=== PATIENT | male | born 1965 | race Caucasian/White ===

== ENCOUNTER → 2019-12-12 10:46 | Outpatient (CLI) | payer OTHER, SELFPAY ==
[2019-11-26 13:49] VITALS: BMI 29.2
--- NOTE | 2019-12-12 10:50 | RAD_ITS ---
STUDY: X-RAY - PELVIS REASON FOR EXAM: Male, 54 years old. mass of Right lower Extremity TECHNIQUE: Two views of the pelvis were obtained. COMPARISON: None. FINDINGS: There is a non-specific bowel gas pattern. Normal visualized soft tissue structures. Normal bilateral iliac wings, sacroiliac joints and visualized sacrum. Normal visualized bilateral superior and inferior pubic rami. Normal pubic symphysis. Normal ischial tuberosities. Normal visualized right femoral head. Normal right acetabulum. Normal right hip joint. Normal visualized left femoral head. Normal left acetabulum. Normal left hip joint. RAD/Pelvis 1 or 2 Views IMPRESSION: Normal x-ray examination of the pelvis. Electronically Signed: Clement Moon MD at 19:59 EDT , Service support ,
== END ==
PROVIDERS: PCP Family Medicine; Referring Provider Surgery; Visit Provider Surgery
DX: M79.89 Other specified soft tissue disorders (principal)
CPT/HCPCS: 72170

== ENCOUNTER 2019-12-14 12:46 | Observation (INO) | payer OTHER, SELFPAY ==
[2019-11-26 13:49] VITALS: BMI 29.2
[2019-12-14] VITALS (12 sets, daily range): BP systolic 120–152; BP diastolic 72–93; PULSE 70–82; RESP 16; TEMP 36.2–37.3; O2SAT 94–98; BMI 28.2; BMI 31.1; BMI 31.2
--- NOTE | 2019-12-14 13:03 | ED.VIS.GEN ---
History of Present Illness Chief Complaint: Abd Pain Informant: Patient Narrative: 54-year-old male presenting with right lower quadrant pain. He states it started last evening and it was fairly mild at about 8 PM. Patient states that it was increasing overnight and he had episodes of nausea/vomiting. He slept with the trash can by his bed. Today his pain is more severe. He is concerned he has appendicitis. He has no history of kidney stones. He denies constipation or diarrhea. He denies urinary complaints. He has not had a fever at home. He has a distant hernia repair when he was 6 years old otherwise no intra-abdominal surgeries. He states his only medical problem is hypertension otherwise. Past Medical History - Allergies and Home Meds Allergies/Adverse Reactions: Allergies pregabalin [From Lyrica] Allergy (Mild, Verified 12/14/19 12:49) mood swings Primary Care Physician: Jeffery Andino III, MD [Primary Care Provider] - Prior records reviewed: Yes Past Medical History: - - Hypertension Surgical History: - - Abdominal hernia repair Lives: Spouse/ Significant Other Smoking Status: Unknown if ever smoked Alcohol: None Drugs: None Review of Systems General: Denies: Chills, Fever, Sweats Eyes: Denies: Visual changes - bilaterally, Diplopia ENT: Denies: Rhinorrhea, Sore throat Cardiovascular: Denies: Chest pain, Palpitations Respiratory: Denies: Dyspnea, Cough, Dyspnea on exertion Gastrointestinal: Reports: Abdominal pain, Nausea, Vomiting. Denies: Diarrhea, Constipation, Melena, Hematochezia Genitourinary: Denies: Dysuria, Hematuria Musculoskeletal: Denies: Myalgias, Arthralgias Skin: Denies: Rash, Abscess Psych: Denies: Depression, Anxiety Physical Exam Vital Signs/Narrative: Vital Signs Temp Pulse Resp BP Pulse Ox 12/14/19 12:49 97.1 F L 75 16 123/78 H 97 Inital Vital Signs reviewed: Yes General: Well nourished, Well developed Head: Normocephalic, Atraumatic Eyes: Perrl, EOMI. Negative for: Scleral icterus ENT: Moist mucous membranes, No rhinorrhea Cardiovascular: Regular rate, Regular rhythm Respiratory: No distress, CTA bilaterally Abdomen: Soft, Nondistended, Tender - Right lower quadrant abdominal pain on exam.. Negative for: Psoas sign, Obturator sign, Rovsig's sign Extremities: Nontender, No edema Skin: Normal color, No rash Neurological: Alert, Oriented x3 Psychological: Normal affect, Normal Mood Diagnostic/Tx/Re-eval Clinical Impression(s) from Imaging Studies Abdomen/Pelvis CT 12/14/19 13:26 Laboratory Data 12/14/19 12/14/19 12/14/19 13:20 13:20 13:30 WBC 10.0 RBC 4.92 Hgb 15.5 Hct 45.1 MCV 91.7 MCH 31.5 MCHC 34.4 RDW Std Deviation 41.1 RDW Coeff of Manisha 12.3 Plt Count 177 MPV 10.9 Immature Gran % (Auto) 0.300 Neut % (Auto) 75.4 H Lymph % (Auto) 16.4 L [place] % (Auto) 7.5 Eos % (Auto) 0.1 Baso % (Auto) 0.3 Absolute Neuts (auto) 7.5 Absolute Lymphs (auto) 1.63 Nucleated RBC % 0 Sodium 139 Potassium 3.8 Chloride 105 Carbon Dioxide 29.0 Anion Gap 5 BUN 20 H Creatinine 0.94 Estim Creat Clear Calc 105.66 Est GFR (MDRD) Af Amer 108 Est GFR (MDRD) Non-Af 89 BUN/Creatinine Ratio 21.4 H Glucose 94 Calcium 9.3 Total Bilirubin 0.80 AST 16 ALT 31 Alkaline Phosphatase 82 Total Protein 7.7 Albumin 4.1 Globulin 3.6 Albumin/Globulin Ratio 1.1 Urine Color Yellow Urine Clarity Clear Urine pH 6.0 Ur Specific [place] 1.010 Urine Protein Negative Urine Glucose (UA) Normal Urine Ketones Negative Urine Occult Blood Negative Urine Nitrite Negative Urine Bilirubin Negative Urine Urobilinogen Normal Ur Leukocyte Esterase Negative Urine RBC 0 SEEN Urine WBC 0 SEEN Ur Squamous Epith Cells 0 SEEN Urine Bacteria 0 SEEN Urine Mucus 0 SEEN - Medical Decision Making 54-year-old male presenting with right lower quadrant abdominal pain as well as nausea/vomiting. His blood work does appear to be normal however his CT of the abdomen and pelvis with IV contrast did not identify an acute nonperforated appendicitis. This was discussed with Dr. Ruiz who will come evaluate the patient in the ED. Patient will be transferred to the OR for appendectomy. Patient is stable on transfer. Impression: 1. Acute appendicitis ED Disposition - Plan for ED Patient: Referrals: Jeffery Andino III, MD [Primary Care Provider] -
--- NOTE | 2019-12-14 13:26 | CT_ITS ---
We are attempting to reach an attending provider to discuss findings. An addendum with communication details will be sent when the communication is complete. STUDY: CT ABDOMEN AND PELVIS WITH CONTRAST REASON FOR EXAM: Male, 54 years old. RLQ PAIN. RADIATION DOSAGE (If Supplied By Facility): CTDIvol = ( 17.47 ) mGy, DLP = ( 1171.73 ) mGycm TECHNIQUE: Transaxial images were obtained from the dome of the diaphragm to the symphysis pubis without oral contrast. IV 100mL Isovue-370 was administered. Sagittal and coronal images were reconstructed. Individualized dose optimization techniques were used for this CT. COMPARISON: None. FINDINGS: Lung bases demonstrate no evidence for consolidative process. Platelike atelectasis in the lung bases. Small hiatal hernia. Hepatic steatosis. Gallbladder is nondistended. Body and tail of the pancreas are not visualized possibly congenitally absent or atrophic. The adrenal glands appear unremarkable. Spleen appears unremarkable. Nonobstructive bowel gas pattern. There is dilated appendix noted with adjacent inflammatory stranding suggestive of acute appendicitis. Maximum appendiceal diameter is approximately 1 cm. Uncomplicated colonic diverticulosis. No free air within the peritoneal cavity. No free fluid. Right-sided fat-containing inguinal hernia. Heterogeneous enlarged appearance of the prostate gland which can be assessed with digital rectal exam and PSA values. Nonspecific wall thickening of the urinary bladder. Right-sided fat-containing inguinal hernia Degenerative changes of the lumbar spine. Kidneys demonstrate no evidence for hydronephrosis. Mild wedging of the lower thoracic and upper lumbar vertebrae which falls nodes IMPRESSION: Acute appendicitis. No evidence for drainable fluid collections. No evidence for appendiceal perforation. Electronically Signed: Travis Mar, at 14:54 EDT Tel , Service support , CT/Abdomen/Pelvis W IV Cont ONLY
[2019-12-14 13:41] LABS: Bacteria 0 SEEN /hpf (None Seen); Mucous, Urine 0 SEEN /hpf (<or=2+); Red Blood Cells-Urine 0 SEEN /hpf (0-5); Squamous Epithelial Cells - UA 0 SEEN /hpf (0-5); White Blood Cells 0 SEEN /hpf (0-5)
[2019-12-14 13:48] LABS: Color, Urine Yellow (Yellow); Glucose, Dipstick Normal (Normal); Ketone-Dipstick Negative (Negative); Leukocyte Esterase-Dipstick Negative /ul (Negative); Nitrite-Dipstick Negative (Negative); Occult Blood-Urine Negative /ul (Negative); Protein-Dipstick Negative (Negative); Urine Bilirubin Dipstick Negative (Negative); Urine Clarity Clear (Clear); Urine Urobilinogen Normal (Normal)
[2019-12-14] MEDS: 0.9% Normal Saline 1,000 ML 1000 ML IV (13:58)
[2019-12-14 14:03] LABS: Absolute Lymphocyte Count 1.63 X10^3/uL (0.83-4.51); Absolute Neutrophil Count 7.5 X10^3/uL (2.0-7.7); Basophil# 0.03 X10^3/uL; Basophil% 0.3 % (0-1); Eosinophil# 0.01 X10^3/uL; Eosinophils% 0.1 % (0-5); Hematocrit 45.1 % (40-54); Hemoglobin 15.5 g/dL (13.0-16.5); Lymphocyte # 1.63 X10^3/ul (4.0); Lymphocyte % 16.4 % (19-41); Mean Corp Hgb Conc 34.4 g/dL (32-36); Mean Corpuscular Hgb 31.5 pg (27.0-32.0); Mean Corpuscular Volume 91.7 fL (80-94); Mean Platelet Vol. 10.9 fl (6.2-12.0); Monocyte# 0.75 X10^3/uL; Monocyte% 7.5 % (0-10); NRBC Flagged by Analyzer 0 % (0-5); Neutrophil % 75.4 % (47-70); Platelet Count 177 K/mm3 (150-450); RBC Distribution Width CV 12.3 % (11.6-14.6); RBC Distribution Width SD 41.1 fl (35.1-43.9); Red Blood Count 4.92 M/mm3 (4.6-6.2)
[2019-12-14 14:20] LABS: ALB/GLOB Ratio 1.1 RATIO (0.9-2.4); AST(SGOT) 16 U/L (15-37); Alanine Aminotransfer ALT/SGPT 31 U/L (16-61); Albumin, Serum 4.1 g/dL (3.2-5.0); Alkaline Phosphatase 82 U/L (45-117); Anion Gap 5 (5-15); BUN 20 mg/dL (7-18); BUN/Creat Ratio 21.4 RATIO (10-20); Calcium,Total 9.3 mg/dL (8.5-10.1); Chloride 105 mmol/L (98-107); Creatinine, Serum 0.94 mg/dL (0.70-1.30); EST Glomerular Filtration Rate 89 mL/min (>60); Est Glom Filt Rate - Afr Amer 108 mL/min (>60); Estimated Creatinine Clearance 105.66 ml/min; Globulin 3.6 g/dL (2.2-4.2); Glucose 94 mg/dL (74-106); Potassium 3.8 mmol/L (3.5-5.1); Protein, Total 7.7 g/dL (6.4-8.2); Sodium Level 139 mmol/L (136-145)
--- NOTE | 2019-12-14 15:18 | EKG12_ITS ---
Test Reason : PREOP Blood Pressure : / mmHG Vent. Rate : 072 BPM Atrial Rate : 072 BPM P-R Int : 164 ms QRS Dur : 148 ms QT Int : 444 ms P-R-T Axes : 033 -17 -20 degrees QTc Int : 486 ms Sinus rhythm with occasional Premature ventricular complexes Possible Left atrial enlargement Right bundle branch block Abnormal ECG Confirmed by EZIO LOU, JERICHO ([id number]), film and video editor PATRICIA WHITE ([id number]) on 12/18/2019 11:30:55 AM Referred By: Confirmed By:JERICHO HOLGUIN MD
--- NOTE | 2019-12-14 15:22 | HP.PCM_ITS ---
History and Physical Date of Admission: 12/14/19 Chief Complaint: abdominal pain History of Present Illness: 54 y/o WM presents with abdominal pain - right lower quadrant. Has had this since last night. Also with nausea. Denies emesis. Denies fevers. Presents to the [facility] ED. Workup reveals that WBC is 10K with left shift of differential. CT scan - There is dilated appendix noted with adjacent inflammatory stranding suggestive of acute appendicitis. Maximum appendiceal diameter is approximately 1 cm. Past Medical History: hypertension sleep apnea Past Surgical History: right and left knee surgeries thyroid surgery right inguinal hernia as child Medications: liisinopril hctz Allergies: lyrica Social history: TOB use denies Review of Systems: General - denies fevers, denies weight loss, denies anorexia Cardiovascular denies chest pain, denies history of heart attack Pulmonary denies shortness of breath, denies coughing up blood Gastrointestinal as per HPI, has hemorrhoids Neurological denies numbness/weakness of extremities, denies seizures, denies history of stroke Genitourinary denies burning with urination, denies blood in urine Hematological denies spontaneous/prolonged bleeding Skin denies open non healing wounds Musculoskeletal had bilateral knee surgeries Endocrine denies diabetes Psychological denies hallucinations Physical examination: Vital signs Temp 97.1F Ht: 6'1.5 BP 151/76 HR 88 RR 16 General WD/WN WM in no apparent distress, alert and oriented, not septic appearing HEENT Normocephalic. EOM intact with sclera clear and no icterus noted. Neck is supple with no jugular venous distention noted. Trachea is midline. No carotid bruits Lungs normal breath sounds. No rales/rhonchi/wheezing noted. No labored breathing noted, such as retractions. No cough heard. Heart normal heart sounds, regular rate Abdomen soft and protuberant and tender in right lower quadrant with rebound tenderness, hypoactive bowel sounds, difficult to determine if any masses due to body habitusa Extremities no calf tenderness or swelling noted. No pitting edema noted. No obvious deformity noted. Genitourinary/Rectal deferred Skin normal skin integrity. Neurological non focal Psychological normal affect, patient is calm and appropriate Impression: appendicitis by CT scan Discussion/Plan: I have discussed the above with the patient and his who is present with him. I have offered the patient the procedure of laparoscopic appendectomy. I have explained the procedure to the patient. I have counseled the patient as to the risks of the procedure, including but not limited to: infection, bleeding, injury to any blood vessels/nerves, scar tissue, injury to any intrabdominal organs, injury to kidney/ureters, injury to bowel/bladder, intraabdominal abscess/bleeding, hernias at incisional sites, wound infections, possible open procedure, complications of anesthesia, postoperative pneumonia/cardiac problems/blood clots etc. the patient understands. The patient was offered a surgery/procedure. The provider and patient have discussed in detail the risk of exposure to and/or potential harm posed by the COVID-19 virus with having a surgery/procedure at this time versus the risk of delaying the surgery/procedure. It is not possible to know either the risk of delaying the surgery or procedure or chance of getting an infection with perfect accuracy, but a joint decision was made between the patient and the provider to proceed at this time with the scheduled surgery/procedure. The patient agrees to proceed. I have answered all questions to the patient?s satisfaction and the patient has no further questions.
[2019-12-14] MEDS: 0.9% Normal Saline 1,000 ML 999 ML IV (15:25)
[2019-12-14] MEDS: Lactated Ringers 1,000 ML 100 ML IV (16:10)
--- NOTE | 2019-12-14 16:15 | APP_PTH ---
PATIENT: MAGGIE SUTHERLAND LOC: [facility]3 U#:[id number] AGE/SX: 54/M ROOM: MS319 RE12/14/[address]: Dr. Cyndi Ruiz MD : [id number] BED: 1 DIS: 12/15/2019 SPEC #: [id number] RECD: 12/16/19 08:17 STATUS: EMANUEL RE #: [id number] CABRERA: 12/14/19 16:[address]: Cyndi Ruiz DEPT: SURGICAL PATHOLOGY RECD BY: Daphne Feliz ENTERED: 12/16/19 09:00 SP TYPE: APPENDIX OTHR DR: Dr. Jeffery Andino III, MD Tissues: Appendix, NOS Procedures: Surgery Specimen Level III HEADER OPERATION: Laparoscopic appendectomy PRE-OP DIAGNOSIS: Appendicitis TISSUE SUBMITTED: Appendix MICROSCOPIC DIAGNOSIS Appendix, appendectomy: Acute appendicitis and periappendicitis. One periappendiceal lymph node with reactive changes. SJ:patricia 12/17/19 MICROSCOPIC DESCRIPTION Slides are reviewed. GROSS DESCRIPTION Received in fixative is one container labeled with the patient's name and designated appendix. The specimen consists of an appendix received in two fragments. One fragment measures 4 cm in length and is surrounded by yellow, fatty tissue extending to a distance of 2 cm. The other fragment measures 4.5 cm in length. Steel Sampler sections are submitted in one cassette. / AM:patricia 12/16/19 TC:2 CPT: 08141
[2019-12-14] MEDS: Bupiv/Epi 0.25% 30 ML Vial (17:00)
--- NOTE | 2019-12-14 17:46 | OP.PCM_ITS ---
Report of Operation Date of Procedure: 12/14/19 Pre-Operative Diagnosis: acute appendicitis Post-Operative Diagnosis: same Surgery/Procedure Performed:: laparoscopic appendectomy Description of Surgical Findings:: not perforated appendicitis, large amount of intraabdominal fat, appendix in retrocecal area extending to mid right lateral abdomen Type of Anesthesia:: General Anesthesiologist: Roshan Putnam Specimen's removed: appendix Estimated Blood Loss (mL): 50 ml Fluids Replaced: 1500 ml RL Description of Procedure: After informed consent was obtained, the patient was brought into the Operating Room. Appropriate time out protocol was followed. The patient was placed in the supine position on the operating table. The patient was then placed under general anesthesia by the anesthesia provider. The patient?s abdomen was then prepped with a sterile surgical skin preparation and sterile surgical drapes were placed. The infraumbilical skin fold was grasped with penetrating towel clamps and the skin and subcutaneous tissues were infiltrated with 0.25% marcaine with epinephrine. A incision was then made with a 15 blade scalpel. A Veress needle was then inserted into the intraabdominal cavity and checked to be in the proper position with a normal saline drop test. A CO2 pneumoperitoneum was then created. Once this was achieved, the Veress needle was removed and a 5 mm trocar was placed in its stead. A 5 mm laparoscope was then inserted into the trocar. Later on in the procedure an addition supraumbilical 5 mm trocar was placed, due to need for retraction of intraabdominal fatty tissues for better visualization. Careful examination of the intraabdominal contents was then done. There was no evidence of injury to any internal organs from placement of the Veress needle or the trocar. Under direct visualization, a 12mm suprapubic trocar and a 5mm left lower quadrant trocar was then placed into the intraabdominal cavity. The skin and subcutaneous tissues at these sites were first infiltrated with 0.25% marcaine with epinephrine. Attention was then directed to the right lower quadrant. The appendix was visualized. It was in the retrocecal area and it extended in the right paracolic gutter to the mid right abdomen. The appendix appeared enlarged/edematous/injected/with surrounding inflammation. The mesentery of the appendix was taken down by cauterizing the tissue from the free edge to the base of the appendix using the Harmonic scalpel. Once the base of the appendix was freed of surrounding tissues, then the linear gastrointestinal stapling device was brought into the abdominal cavity via the 12mm port and placed across the base of the appendix. The stapling device was fired, thus stapling across the base of the appendix and transecting it simultaneously. There was no evidence of perforation of the appendix. There was cloudy/purulent peritoneal fluid noted. The pelvic cavity was vigorously irrigated with normal saline and all irrigant was aspirated out. The appendix was placed in an Endobag and this was brought out through the supr apubic trocar. The appendix was forwarded to Pathology for analysis. There was inflammatory oozing of the mesentary of the appendix, this was controlled with surgicel. The appendiceal stump was carefully examined. There was no evidence of any active bleeding or fecal leakage. The surrounding tissues were also examined and there was no evidence of any active bleeding or fecal/bile leakage. The intraabdominal cavity was examined and there was no evidence of any further inflammation or tissue abnormality. The CO2 pneumoperitoneum was released and all trocars were removed intact. The suprapubic fascia was reapproximated with a figure-of-8 vicryl suture. All skin incisions were reapproximated with monocryl suture. Cavilon and steristrips were applied to reinforce skin closure and proper sterile dressings were placed. Sponge, needle, and instrument count were verified and correct at the time of skin closure. The patient was then extubated and brought to the Recovery Room in stable condition. - Complications none noted - Admit VTE Documentation VTE Present on Admission: Yes VTE Mechan Device Prophylaxis: SCD's
--- NOTE | 2019-12-14 18:05 | EKG12_ITS ---
Test Reason : DYSRHYTHMIA Blood Pressure : / mmHG Vent. Rate : 070 BPM Atrial Rate : 070 BPM P-R Int : 184 ms QRS Dur : 154 ms QT Int : 474 ms P-R-T Axes : 065 -01 -24 degrees QTc Int : 511 ms Normal sinus rhythm Right bundle branch block T wave abnormality, consider inferior ischemia Abnormal ECG When compared with ECG of 14-DEC-2019 15:22, MANUAL COMPARISON REQUIRED, DATA IS UNCONFIRMED Confirmed by EZIO LOU, JERICHO ([id number]), magazine editor PATRICIA WHITE ([id number]) on 12/18/2019 11:43:50 AM Referred By: FRED Confirmed By:JERICHO HOLGUIN MD
[2019-12-14] MEDS: 0.9% Normal Saline 1,000 ML 100 ML IV ×2 (19:01→21:34)
--- NOTE | 2019-12-14 20:15 | NURSING ---
Spoke with pt's on phone at this time; update given. Per pt, ok to give update.
[2019-12-14] MEDS: Morphine 4 MG/ML Syringe IV ×2 (20:19→23:32)
[2019-12-15] MEDS: HYDROcodone Bitartrate/Apap 5/325 Tablet PO ×3 (02:01→10:30)
[2019-12-15 03:42] VITALS: BP 122/67; PULSE 68; RESP 16; TEMP 36.8; O2SAT 99
[2019-12-15] MEDS: Morphine 4 MG/ML Syringe IV (03:58)
[2019-12-15 08:35] VITALS: BP 138/77; PULSE 72; RESP 18; TEMP 36.4; O2SAT 98
[2019-12-15] MEDS: Lisinopril 20 MG Tablet PO (08:44)
[2019-12-15] MEDS: hydroCHLOROthiazide 12.5mg 12.5 MG PO (08:44)
--- NOTE | 2019-12-15 08:46 | PN.SURG_ITS ---
Subjective: feels improved, no flatus yet, tolerating liquids, able to urinate - Physical Exam Vitals/I&O's: Vital Signs Temp Pulse Resp BP Pulse Ox 97.6 F L 72 18 138/77 H 98 12/15/19 08:35 12/15/19 08:35 12/15/19 08:35 12/15/19 08:35 12/15/19 08:35 Oxygen Flow Rate (L/min) 2 Oxygen Delivery Method Room Air Weight: 107.2 kg Body Mass Index (BMI) 31.1 Intake and Output for Last 24 Hours 12/13/19 12/14/19 12/15/19 23:59 23:59 23:59 Intake Total 3628.13 / 3628.13 500.2 / 500.2 Balance 3628.13 / 3628.13 500.2 / 500.2 General: Alert, Oriented x3 HEENT: Atraumatic Oral: Moist Mucosa Neck: Supple Lungs: Normal air movement Abdomen: Soft, - - dressings intact, no evidence of bleeding Laboratory Results 12/14/19 13:20: WBC 10.0, RBC 4.92, Hgb 15.5, Hct 45.1, MCV 91.7, MCH 31.5, MCHC 34.4, RDW Std Deviation 41.1, RDW Coeff of Manisha 12.3, Plt Count 177, MPV 10.9, Immature Gran % (Auto) 0.300, Neut % (Auto) 75.4 H, Lymph % (Auto) 16.4 L, [place] % (Auto) 7.5, Eos % (Auto) 0.1, Baso % (Auto) 0.3, Absolute Neuts (auto) 7.5, Absolute Lymphs (auto) 1.63, Nucleated RBC % 0 12/14/19 13:20: Sodium 139, Potassium 3.8, Chloride 105, Carbon Dioxide 29.0, Anion Gap 5, BUN 20 H, Creatinine 0.94, Estim Creat Clear Calc 105.66, Est GFR (MDRD) Af Amer 108, Est GFR (MDRD) Non-Af 89, BUN/Creatinine Ratio 21.4 H, Glucose 94, Calcium 9.3, Total Bilirubin 0.80, AST 16, ALT 31, Alkaline Phosphatase 82, Total Protein 7.7, Albumin 4.1, Globulin 3.6, Albumin/Globulin Ratio 1.1 12/14/19 13:30: Urine Color Yellow, Urine Clarity Clear, Urine pH 6.0, Ur S pecific [place] 1.010, Urine Protein Negative, Urine Glucose (UA) Normal, Urine Ketones Negative, Urine Occult Blood Negative, Urine Nitrite Negative, Urine Bilirubin Negative, Urine Urobilinogen Normal, Ur Leukocyte Esterase Negative, Urine RBC 0 SEEN, Urine WBC 0 SEEN, Ur Squamous Epith Cells 0 SEEN, Urine Bacteria 0 SEEN, Urine Mucus 0 SEEN 12/14/19 18:15: Troponin I < 0.015 12/14/19 22:28: Troponin I < 0.015 Current Medications Hydrocodone Bitart/Acetaminophen ([place] 5mg-325mg) 1 tablet PO Q4H PRN PRN PRN Reason: Pain Score 1-510 Last Admin: 12/15/19 06:05 Dose: 1 tablet Documented by: Hydrochlorothiazide () 12.5 mg PO DAILY [facility] Last Admin: 12/15/19 08:44 Dose: 12.5 mg Documented by: Piperacillin Sod/Tazobactam (Sod 3.375 gm/ Sodium Chloride) 50 mls @ 12.5 mls/hr IV Q8 [facility] Last Admin: 12/15/19 05:14 Dose: 12.5 mls/hr Documented by: Sodium Chloride () 1,000 mls @ 100 mls/hr IV .Q10H [facility] Last Infusion: 12/15/19 05:14 Dose: 0 mls/hr Documented by: Lisinopril (Zestril) 20 mg PO DAILY [facility] Last Admin: 12/15/19 08:44 Dose: 20 mg Documented by: Morphine Sulfate () 4 mg IV Q1H PRN PRN PRN Reason: Pain Score 6-1010 Last Admin: 12/15/19 03:58 Dose: 4 mg Documented by: Ondansetron HCl (Zofran) 4 mg IV Q8H PRN PRN PRN Reason: NAUSEA/VOMITING Sodium Chloride () 10 - 40 ml IV UD PRN PRN Reason: SALINE FLUSH Medical Necessity - Tobacco Use Smoking Status: Former smoker Assessment/Plan All Active Problems (Last Reviewed 11/26/19 @ 13:45 by Karlie Uriostegui) Mass of soft tissue of right lower extremity (Acute) Impression: POD#1 s/p laparoscopic appendectomy Plan: discharge to home f/u with me in clinic in 1-2 weeks [place] for pain medications encouraged ambulation and keeping hydrated
--- NOTE | 2019-12-15 08:48 | DCINST_ITS ---
Discharge Diet: No Restrictions - drink plenty of fluids, avoid carbonated beverages for a couple of days Discharge Activity: Return to Normal Activity, May not drive while taking narcotic pain medications. Lifting Restrictions: no lifting greater than 20 pounds for 2 weeks Call your doctor if your incision/area has: Continuous Slow Oozing, Foul Smelling Discharge Call your doctor if you observe: Fever of 101 or Higher Additional Instructions: Recommended pain control regimen - May take 600 mg ibuprofen (Motrin) and then in 3-4 hours, may take 650 mg acetaminophen (Tylenol), then in 3-4 hours may take 600 mg ibuprofen, then in 3- 4 hours may take 650 mg acetaminophen and so on for 2-3 days May take narcotic pain medication for pain that is not controlled by above and at night for comfort through the night Leave dressings in place May get dressings wet in shower - do not scrub in the area and pat dry Do not soak - no tub baths/swimming If dressing appears to be soiled/open at one end/no longer sealed - may remove dressing but leave site uncovered (do not replace with any type of dressing) - leave steristrips in place - may get wet but do not scrub in the area and pat dry If you feel constipated, you may take over the counter laxatives Medications to take at Discharge cetirizine 10 mg tablet 10 mg PO DAILY 11/26/19 glucosamine HCl 500 mg tablet 500 mg PO DAILY tab 11/26/19 hydrochlorothiazide 12.5 mg tablet 12.5 mg PO DAILY 11/26/19 lisinopril 20 mg tablet 20 mg PO DAILY 11/26/19 multivitamin 1 cap PO DAILY 11/26/19 tramadol 50 mg tablet 50 mg PO Q8H PRN 11/26/19 venlafaxine 75 mg capsule,extended release 24 hr 75 mg PO DAILY 11/26/19 Methylsulfonylmethane [MSM] 1,000 mg PO DAILY 12/14/19 Hydrocodone Bitart/Apap 5-325 [[place] 5MG-325MG] 1 tablet PO Q8H PRN PRN 5 Days #15 tablet 12/15/19 Allergies/Adverse Reactions: Allergies pregabalin [From Lyrica] Allergy (Mild, Verified 12/14/19 12:49) mood swings The following prescriptions were given: Hydrocodone Bitart/Apap 5-325 [[place] 5MG-325MG] 1 tablet PO Q8H PRN PRN 5 Days #15 tablet PRN Reason: Pain Transmission Status: Received by ERNIE CALERO-1953 [facility] Primary Care Physician: Jeffery Andino III, MD [Primary Care Provider] - Test Results: Test results from this visit will be discussed in further detail at your follow- up appointment, if applicable. Please Follow Up With: Cyndi Ruiz MD - calll When: to be seen in 1-2 weeks, please call for date and time, thank you
== END 2019-12-15 10:56 | disposition home or self-care (01) ==
LOC: ED 14:39 → SDC 15:26 → MS3 17:44 → ACINP 12-16 10:19 → MS3 12-16 10:19
PROVIDERS: Anesthesiology; Admitting Provider Surgery; Emergency Provider Student in an Organized Health Care Education/Training Program; PCP Family Medicine; Visit Provider Surgery
PROC: 0DTJ4ZZ Resection of Appendix, Percutaneous Endoscopic Approach (ICD-10-PCS; CPT 44970; principal; 2019-12-14 16:15)
DX: K35.80 Unspecified acute appendicitis (principal); I10 Essential (primary) hypertension; G47.30 Sleep apnea, unspecified; I45.10 Unspecified right bundle-branch block; Z79.899 Other long term (current) drug therapy; Z87.891 Personal history of nicotine dependence
CPT/HCPCS: 44970; 36415; 74177; 80053; 81001; 84484; 85025; 88304; 93005; 96361; 96365; 96366; 96375; 96376; 99218; 99281; J7030; J7120; Q9967; A4216; G0378; J2405

== ENCOUNTER 2020-04-30 08:28 | Day surgery (SDC) | payer OTHER, SELFPAY ==
[2019-12-14 19:50] VITALS: BMI 31.1
[2020-04-30] VITALS (9 sets, daily range): BP systolic 88–146; BP diastolic 53–86; PULSE 77–97; RESP 16–20; TEMP 36.7–37.1; O2SAT 95–100; BMI 30.2
--- NOTE | 2020-04-30 | IMM_PTH ---
PATIENT: MAGGIE SUTHERLAND [place] [facility] [id number] AGE/SX: 55/M ROOM: RE04/30/[address]: Dr. Daniel Andino MD : 1965 BED: DIS: 04/30/2020 SPEC #: [id number] RECD: 05/01/20 11:45 STATUS: EMANUEL REQ #: [id number] CABRERA: 04/30/20 00:[address]: Daniel Andino DEPT: IMMUNOHISTOCHEMISTRY RECD BY: Minnie Moore ENTERED: 05/01/20 11:47 SP TYPE: IMMUNO OTHR DR: Dr. Jeffery Andino III, MD Tissues: B - Skin of buttock, NOS Procedures: SMA (add) CALPONIN-1 (add) CD34 (add) DESMIN (add) KELY (add) P53 (add) Vimentin (add) SMM (add) FACTOR VIII (add) NEUROFIL (add) Pankeratin (initial) S-100 (add) PHYSICIAN & [address] [address] SPECIMEN INFORMATION: Tissue Source: B - Subdermal lesion left buttock Clinical Info: Skin lesion Specimen Number: [id number] CPT code: 25518, 03041 x11 METHODOLOGY: Deparaffinized sections of prefer/formalin-fixed tissue or PAP/DQ stained slides are incubated with monoclonal/polyclonal antibodies/oligonucleotide probes. Localization is made via biotin free immunoperoxidase method. Appropriate controls are performed and reacted as expected. Results on target cell population are indicated in the following table: RESULTS: ANTIBODY / CLONE RESULT Block B AE1-3 (AE1/AE3/PCK26) negative Vimentin (V9) positive Calponin-1 (IX128O) positive Factor VIII (R Ag) negative CD34 (QBEnd-10) negative Actin (1A4) positive Myosin (simms1) positive Desmin (CE-R-11) positive S-100 (4C4.9) negative Neurofil (2F11) negative KELY (E29) negative P53 (DO-7) negative These tests were developed and their performance characteristics determined by [facility]. They may not have been cleared or approved by the U.S. Food and Drug Administration. The FDA has determined that such clearance or approval is not necessary. The above immunohistochemical/dualISH markers are ordered and reviewed by the Pathologist. INTERPRETATION: B. Subdermal lesion, left buttock, biopsy: Consistent with leiomyoma. AM:patricia 05/04/2020
[2020-04-30] MEDS: Lactated Ringers 1,000 ML 100 ML IV ×2 (09:01→11:45)
--- NOTE | 2020-04-30 10:30 | SOF_PTH ---
PATIENT: MAGGIE SUTHERLAND [place] [facility] [place][id number] AGE/SX: 55/M ROOM: RE04/30/[address]: Dr. Daniel Andino MD : 1965 BED: DIS: 04/30/2020 SPEC #: [id number] RECD: 04/30/20 11:50 STATUS: EMANUEL REAstrid #: [id number] CABRERA: 04/30/20 10:[address]: Daniel Andino DEPT: SURGICAL PATHOLOGY RECD BY: Elaine Hansen ENTERED: 04/30/20 13:05 SP TYPE: SOFT TISS OTHR DR: Dr. Jeffery Andino III, MD Tissues: A - Soft tissues, NOS B - Soft tissues, NOS Procedures: Surgery Specimen Level IV HEADER OPERATION: Excision right buttock mass, excision left buttock lesion PRE-OP DIAGNOSIS: Skin lesion, recurrent right inguinal hernia, mass of soft tissue of right lower extremity TISSUE SUBMITTED: A - Right cutaneous mass, B - Subdermal lesion left buttock MICROSCOPIC DIAGNOSIS A. Right cutaneous mass, excision: Mature adipose tissue. See comment. B. Subdermal lesion, left buttock, biopsy: Consistent with leiomyoma. See comment. AM:patricia 05/01/2020 COMMENT A. The findings are consistent with a lipoma. Clinical correlation is suggested. B. Immunohistochemistry ([id number]) supports the above diagnosis. MICROSCOPIC DESCRIPTION Slides are reviewed. GROSS DESCRIPTION A - Received in fixative is one container labeled with the patient's name and designated right cutaneous mass. The specimen consists of multiple irregular fragments of ramos-yellow fibrofatty tissue ranging in size from <0.1 to 15 cm in greatest dimension. Serial sections do not reveal areas of necrosis, myxoid change or cysts. Administration Internship sections are submitted in three cassettes. B - Received in fixative is one container labeled with the patient's name and designated subdermal lesion left buttock. The specimen consists of an irregular fragment of skin measuring 1 x 0.2 cm. Attached to this is an irregular fragment of yellow soft tissue measuring 1.5 cm in greatest dimension. The specimen is submitted in its entirety in one cassette. / AM:patricia 04/30/20 TC:3 CPT: 98805 x2
--- NOTE | 2020-04-30 10:51 | HP.PCM_ITS ---
Problem List (1) Skin lesion Status: Chronic (2) Subcutaneous mass Status: Acute History and Physical Date of Admission: 04/30/20 Intake Intake Visit Reasons: EVALUATE HERNIA, DISCUSS SURGERY LIPOMA Chief Complaint: re-evluate hernia, discuss surgery Care Transition Mgr Required: No Is patient in pain?: No Allergies pregabalin [From Lyrica] Allergy (Mild, Verified 04/01/20 12:58) mood swings Medications cetirizine 10 mg tablet 10 mg PO DAILY 11/26/19 [History Confirmed 04/01/20] glucosamine HCl 500 mg tablet 500 mg PO DAILY tab 11/26/19 [History Confirmed 04/01/20] hydrochlorothiazide 12.5 mg tablet 12.5 mg PO DAILY 11/26/19 [History Confirmed 04/01/20] lisinopril 20 mg tablet 20 mg PO DAILY 11/26/19 [History Confirmed 04/01/20] multivitamin 1 cap PO DAILY 11/26/19 [History Confirmed 04/01/20] tramadol 50 mg tablet 50 mg PO Q8H PRN 11/26/19 [History Confirmed 04/01/20] venlafaxine 75 mg capsule,extended release 24 hr 75 mg PO DAILY 11/26/19 [Histor y Confirmed 04/01/20] Methylsulfonylmethane [MSM] 1,000 mg PO DAILY 12/14/19 [History Confirmed 04/01/20] [facility] Medical History Seasonal allergies (Acute) HTN (hypertension) (Chronic) Enlarged prostate (Acute) Right inguinal hernia (Acute) Mass of soft tissue of right lower extremity (Acute) Anxiety (Acute) Benign colonic polyp (Acute) Cervical disc herniation (Acute) Follicular adenoma of thyroid gland (Acute) History of back problems (Acute) Hurthle cell carcinoma of thyroid (Acute) Hyperlipidemia (Acute) Sleep apnea (Acute) Hypertension (Chronic) Surgical History History of appendectomy (Acute ~01/2020) History of arthroscopy of both knees (Acute) History of lobectomy of thyroid (Acute) History of right inguinal hernia repair (Acute) Family History Father Hypertension Brother Hypertension Grandfather Cancer skin cancer CVA (cerebral vascular accident) Grandmother CVA (cerebral vascular accident) Social History (Updated 04/01/20 @ 14:[address] Daniel Andino MD) Smoking Status: Former smoker alcohol intake: current alcohol intake frequency: a few times a week substance use type: does not use HPI HPI HPI: MAGGIE SUTHERLAND, is a 55 M who presents to the office today for to discuss 3 separate issues. One is the right medial buttock subcutaneous mass felt to be consistent with a subcutaneous lipoma. 1 is a new tender focal area of the left mid buttock that appears to be of germinal origin and causes intermittent stinging and pain. The final one is a right inguinal hernia identified on CT scan. The patient makes note and comment that longer go through an open incision in the right groin he had a right inguinal herniorrhaphy. He is an avid bicyclist. The size and positioning of this large subcutaneous mass right buttock is very uncomfortable. The skin lesion on the left buttock also provides discomfort sitting in the saddle. He has not been having any difficulty or discomfort in the right groin. The CT scan suggested a small fat-containing hernia. There was no bowel involvement HPI HPI HPI: MAGGIE SUTHERLAND, is a 55 M who presents to the office today for ROS General General: No weight change, appetite, fatigue, colon cancer, breast cancer or weakness HEENT HEENT: No difficulty swallowing, eye injury, eye surgery, swollen glands or hoarseness Endo Endocrine: No thyroid disease, diabetes mellitus, thyroid cancer, Hair loss, heat intolerance or cold intolerance Skin Skin: No rash or changing moles Breast Breast: No left breast lump, right breast lump, nipple discharge, breast pain, abnormal mammogram, abnormal US or breast enlargement Musc Musculoskeletal: Yes back problems; no arthritis, rheumatoid arthritis, gout or joint pain Cardio Cardiovascular: Yes high blood pressure; no murmur, pacemaker, heart disease, atrial fibrillation, heart attack, heart stent, palpitations, shortness of breat with exertion or chest pain Psych Psychiatric: Yes anxiety; no depression or hearing voices Resp Respiratory: No shortness of breath, Yes sleep apnea, No cough, No COPD, No asthma, No emphysema, No wheezing Gastro Gastrointestinal: No abdominal pain, No nausea or vomiting, No diarrhea, No constipation, No blood in stool, No acid reflux, Yes hemorrhoids, No ulcers, No gallbladder problem, No black,tarry stools Rey Hematologic: No blood thinners, No blood disorders, No bleeding, No anemia, No blood clots Neuro Neurologic: No system reviewed and no additional complaints, except as docu, No as per HPI, No abnormal walking, No abnormal hearing, No abnormal movements, No abnormal speech, No behavioral changes, No burning sensations, No confusion, No seizure-like activity, No unsteadiness, No dizziness, No localized weakness, No frequent falls, No headache(s), No lack of coordination, No loss of vision, No memory loss, No numbness, No other visual disturbances, No radiating pain, No restless legs, No sensory deficit, No fainting, No tingling, No tremor(s), No weakness, No other Exam Const General: cooperative, comfortable, no acute distress Nutritional Appearance: overweight HENMT Head: normal to inspection Chest Breast Palpation: No nipple discharge Resp Effort & Inspection: normal respiratory effort Auscultation: clear to auscultation bilaterally Cardio Rate: regular rate Rhythm: regular rhythm Heart Sounds: no murmurs GI Palpation: soft, no hepatosplenomegaly Other: No evidence of any left inguinal defect. High riding left testicle without mass. No focal mass right testicle. Medial weakness right groin. Only noticeable with straining. Not currently tender Skin General: no rashes or lesions noted Other: Left mid buttock 5 mm diameter superficial dermal lesion tender to touch. Right buttock: 6 cm diameter protuberant somewhat fixed soft tissue subcutaneous mass. Neuro Cognition: normal cognition Extrem General: no calf tenderness Psych Affect: normal affect Assessment & Plan Problems 1. Skin lesion L98.9 2. Recurrent right inguinal hernia K40.91 3. Mass of soft tissue of right lower extremity M79.89 Plan Detail Additional Comments The patient's recurrent right inguinal hernia is currently asymptomatic. He is fairly recently undergone a laparoscopic appendectomy. I am not proposing any surgical intervention at this time for his recurrent right inguinal hernia. If he requires future intervention I would propose a laparoscopic approach Patient has a sizable soft tissue mass right medial buttock. I do propose for him a complete excision of this area likely with some skin reduction. He is aware that the deep space will be closed but that he may need a drain. He has had an opportunity to ask and have questions answered and he is interested in proceeding. In addition the patient has a new focal area of dermal tenderness measuring about 5 mm in diameter left mid buttock. I propose for him a elliptical excision of this dermal lesion. The patient is additionally aware of these recommendations. This area is small and will need to be definitively identified preoperatively. He has had an opportunity to ask and have questions answered. We will schedule procedure at his discretion. Copy: Dr. Jeffery Andino, III Daniel Andino M.D., F.A.C.S. Coding Level of Care Code Off vis,est,level 3 Diagnoses Skin lesion L98.9 Recurrent right inguinal hernia K40.91 Mass of soft tissue of right lower extremity M79.89 I have re-examined the patient. There are no clinical changes since date of exam. Procedure Criteria Procedure Type: Elective COVID Risk Discussion: The surgeon/proceduralist and patient have discussed in detail the risk of exposure to and/or potential harm posed by the COVID-19 virus with having a surgery/procedure at this time versus the risk of delaying the surgery/procedure. It is not possible to know either the risk of delaying the surgery or procedure or chance of getting an infection with perfect accuracy, but a joint decision was made between the patient and the surgeon/proceduralist to proceed at this time with the scheduled surgery/procedure as indicated on the consent form.
--- NOTE | 2020-04-30 10:53 | PCM.DC.GS ---
Discharge Diet: Light diet - advance as tolerated - if you have questions about your diet instructions, please talk to you doctor. Discharge Activity: May Not Drive - for 3-5 days or while taking narcotic pain medicine. May shower in (days): 1 Lifting Restrictions: 10 pounds Call your doctor if your incision/area has: Continuous Slow Oozing, Sudden Increased Bleeding, Increased Pain/ Swelling, Increased Redness, Foul Smelling Discharge Call your doctor if you observe: Fever of 101 or Higher Suture Line Care: Avoid Pulling/Pushing, Avoid Pinching/Bending Additional Dressing/Incision Instructions:: Change the dressings daily or as needed to keep clean and dry. Make sure that after any defecation the incisions are clean and dry use wet wipes or shower to perfectly cleanse the area. Apply dry gauze to help protect from undergarments. Allergies/Adverse Reactions: Allergies pregabalin [From Lyrica] Allergy (Mild, Verified 04/23/20 08:42) mood swings Medications to take at Discharge cetirizine 10 mg tablet 10 mg PO DAILY 11/26/19 glucosamine HCl 500 mg tablet 500 mg PO DAILY tab 11/26/19 hydrochlorothiazide 12.5 mg tablet 12.5 mg PO DAILY 11/26/19 lisinopril 20 mg tablet 20 mg PO DAILY 11/26/19 multivitamin 1 cap PO DAILY 11/26/19 tramadol 50 mg tablet 50 mg PO Q8H PRN 11/26/19 venlafaxine 75 mg capsule,extended release 24 hr 75 mg PO DAILY 11/26/19 Methylsulfonylmethane [MSM] 1,000 mg PO DAILY 12/14/19 Hydrocodone Bitart/Apap 5-325 [[place] 5MG-325MG] 1 tab PO Q6H PRN PRN 2 Days #6 tab 04/30/20 The following prescriptions were given: Hydrocodone Bitart/Apap 5-325 [[place] 5MG-325MG] 1 tab PO Q6H PRN PRN 2 Days #6 tab PRN Reason: Pain Transmission Status: Received by [facility] Primary Care Physician: Jeffery Andino III, MD [Primary Care Provider] - Test Results: Test results from this visit will be discussed in further detail at your follow-up appointment, if applicable. Please Follow Up With: Daniel Andino MD - [phone] When: Call to make an appointment to be seen in about 7 days.
[2020-04-30] MEDS: Lidocaine 1% (20 ml mdv) 20 ML Vial (11:13)
[2020-04-30] MEDS: Bupivacaine Mpf 0.5% 30 ML VIAL (11:13)
--- NOTE | 2020-04-30 11:46 | OP.PCM_ITS ---
Problem List (1) Skin lesion Status: Chronic (2) Subcutaneous mass Status: Acute Report of Operation Date of Procedure: 04/30/20 Pre-Operative Diagnosis: Large subcutaneous mass right medial buttock, 5 mm subdermal mass left mid buttock Post-Operative Diagnosis: Same Surgery/Procedure Performed:: Excision right medial buttock subcutaneous 15 x 8 cm mass. Excision dermal subdermal left mid buttock 5 mm mass Description of Surgical Findings:: Timeout and informed consent was obtained. 55-year-old gentleman was taken to the operating placed supine on the table underwent general endotracheal intubation esthesia he was then placed prone. Bilateral buttock was sterilely prepped and draped. It a very large subcutaneous mass medial aspect right buttock. A longitudinal incision was made directly over this mass it appeared to be lipomatous anteriorly the edges seem to be somewhat better define but more posteriorly edges were very poorly defined. I used electrocautery to dissect free where I could. It ended up being a 15 x 8 cm resection. Visualization did not see any gross remaining tissue. Hemostasis was obtained with interrupted 3- 0 Vicryl. This was a very large cavity that remained and I approximated in layers with multiple interrupted 3-0 Vicryl. The skin edges were approximated running simple suture of 3-0 nylon. Attention was drawn to the left mid buttock dermal subdermal lesion. A elliptical excision measuring 1 x 0.5 cm was used to excise this area down just in the subdermal area. Subdermal tissues approximate interrupted 4-0 Monocryl. Skin edges approximated simple sutures of 3-0 nylon. Telfa OpSite dressing applied. Each excisional area was anesthetized with 0.5% Marcaine. A total of 30 cc was used. Telfa and bulky dry dressings were applied to the right buttock area followed by fishnet pants. Sponge and instrument and needle counts were reported to the surgeon to be correct. Blood loss was minimal. He was taken to the recovery room in satisfactory edition without apparent complication. Daniel Andino M.D., F.A.C.S. Type of Anesthesia:: General Anesthesiologist: Philomena Figueroa
[2020-04-30] MEDS: HYDROcodone Bitartrate/Apap 5/325 Tablet PO ×2 (13:29→14:17)
== END 2020-04-30 15:25 | disposition home or self-care (01) ==
LOC: SDC 08:28 → AC 08:29
PROVIDERS: PCP Family Medicine; Referring Provider Surgery; Visit Provider Surgery
PROC: (CPT 11400; principal; 2020-04-30 10:20)
DX: R22.41 Localized swelling, mass and lump, right lower limb (principal); M79.89 Other specified soft tissue disorders; L98.9 Disorder of the skin and subcutaneous tissue, unspecified; Z20.822 Contact with and (suspected) exposure to COVID-19; I10 Essential (primary) hypertension; E78.5 Hyperlipidemia, unspecified; N40.0 Benign prostatic hyperplasia without lower urinary tract symptoms; G47.30 Sleep apnea, unspecified; F41.9 Anxiety disorder, unspecified; Z79.899 Other long term (current) drug therapy; Z87.891 Personal history of nicotine dependence
CPT/HCPCS: 00300; 11400; 12035; 27043; 87426; 88305; 88341; 88342; C9803; J7120; J2405

== ENCOUNTER → 2020-06-19 07:04 | Outpatient (CLI) | payer OTHER, SELFPAY ==
[2020-05-27 09:05] VITALS: BMI 30.3
--- NOTE | 2020-06-19 07:06 | ECHOD_ITS ---
Reason For Study: HYPERTENSION Procedure This was a 2D Doppler, Color Flow transthoracic echocardiogram. Exam performed in department. Left Ventricle Normal LV size. Left ventricular systolic function is normal. The estimated ejection fraction is 60 %. No regional wall motion abnormalities noted. Right Ventricle Normal RV size. Normal systolic function. Atria Normal left atrium. Normal right atrium. Bubble contrast study negative for right to left interatrial shunt. Mitral Valve Normal mitral valve. Tricuspid Valve Normal tricuspid valve. Mild (1+) tricuspid valve insufficiency. Pulmonary artery systolic pressure is 30 mmHg. Aortic Valve Trisinus/trileaflet aortic valve. Pulmonic Valve Normal pulmonic valve. Great Vessels Normal aortic root. The pulmonary artery is normal size. Normal inferior vena cava. Pericardium/Pleural No pericardial effusion. Medication Performed a rapid injection of agitated mix of 9 cc saline and 1cc air to assess for atrial septal defect. MMode/2D Measurements & Calculations LVIDd: 4.9 cm IVSd: 0.97 cm Ao root diam: 3.2 cm LVIDs: 3.2 cm LVPWd: 1.2 cm RVDd: 3.8 cm FS: 34.0 % LAV(MOD-bp): 49.3 ml LVAd ap4: 35.3 cm2 SV(MOD-sp4): 70.5 ml LAV(MOD-bp) Indexed: 21.4 ml/m2 EDV(MOD-sp4): 111.8 ml LAV(MOD-sp2): 53.7 ml EDV(sp4-el): 115.7 ml LAV(MOD-sp4): 44.8 ml LVAs ap4: 19.0 cm2 ESV(MOD-sp4): 41.3 ml ESV(sp4-el): 41.4 ml EF(MOD-sp4): 63.0 % EF(sp4-el): 64.3 % SV(sp4-el): 74.4 ml LA A4 area: 17.1 cm2 LA dimension(2D): 4.0 cm RA A4 area: 15.7 cm2 Time Measurements MV dec time: 0.22 sec Doppler Measurements & Calculations MV E max dl: 63.1 cm/sec Lat Peak E' Dl: 13.3 cm/sec Med Peak E' Dl: 9.7 cm/sec MV A max dl: 53.7 cm/sec E/E' lat: 4.8 E/E' med: 6.5 MV E/A: 1.2 Ao V2 max: 120.7 cm/sec LV V1 max: 101.2 cm/sec PA V2 max: 141.9 cm/sec Ao max P.8 mmHg LV V1 max P.1 mmHg TR max dl: 254.5 cm/sec TR max P.9 mmHg Interpretation Summary Normal LV size. Left ventricular systolic function is normal. The estimated ejection fraction is 60 %. Bubble contrast study negative for right to left interatrial shunt. Pulmonary artery systolic pressure is 30 mmHg. Ordering Physician: Andi Johnson Referring Physician: MELISSA COBURN Performed By: Carolee Santana RDCS
--- NOTE | 2020-06-19 16:45 | STRESSREP ---
Stress Test Report Exercise myocardial perfusion stress test. 55-year-old man with a history of right bundle branch block. Stress EKG. Resting EKG demonstrates normal sinus rhythm with a rate of 63 bpm and right bundle branch block is noted. Resting blood pressure is 142/74 mmHg. Patient exercised according to regular Adam protocol for total duration of 9 minutes. The maximum heart rate attained was 1 and 57 bpm which was 94% of max impacted heart rate the maximum workload was 10.1 metabolic equivalents. At rest there were no ST or T wave changes noted to suggest ischemia peak exercise upsloping ST changes were noted with did not meet the criteria for ischemia. No clinical angina was noted the test was terminated due to the target heart rate being achieved and dyspnea. The peak blood pressure was 162/68 mmHg which was good blood pressure response to exercise. Myocardial perfusion protocol. 14.3 mCi of technetium 99m sestamibi was injected at rest. Patient exercised according to regular Adam protocol for 9 minutes. At peak exercise 44.8 mCi of technetium 99m sestamibi was injected stress images were obtained stress and rest images were reconstructed and compared in the short axis vertical and horizontal long axis. Gated images were also obtained Perfusion SPECT analysis: Review of the stress images demonstrate normal uptake of tracer noted in all areas of the myocardium: The resting images similarly demonstrate normal uptake of tracer noted in all areas of myocardium. No reversibility is noted just ischemia no previous infarct is noted. Gated SPECT analysis: The gated ejection fraction is 66%. Conclusion: Normal exercise myocardial perfusion stress test at a high workload. Good functional aerobic capacity. Preserved ejection fraction.
== END ==
PROVIDERS: PCP Family Medicine; Referring Provider Internal Medicine Cardiovascular Disease; Visit Provider Internal Medicine Cardiovascular Disease
DX: I10 Essential (primary) hypertension (principal); I45.10 Unspecified right bundle-branch block
CPT/HCPCS: 78452; 93017; 93306; A9500; A4216

== ENCOUNTER 2025-02-18 16:36 | Emergency (ER) | payer BC, SELFPAY ==
[2025-02-18 16:37] VITALS: BP 177/98; PULSE 68; RESP 20; TEMP 36.4; O2SAT 100; BMI 32.1
--- NOTE | 2025-02-18 17:32 | ED.VIS.LOWEX ---
HPI History of Present Illness HPI Narrative: 59-year-old male history of hypertension and prior left knee meniscal surgery years ago. States has had some mild left knee discomfort and calf pain for the last 2 weeks. Denies any fever or chills. No fall or trauma. No history of DVT or PE. No risk factors. No recent surgery or hospitalization. No travel. He did have a colonoscopy about a week ago. No family history of clotting problems. No chest pain or hemoptysis. No shortness of breath. He was seen in urgent care today and referred to the emergency department. He denies any other complaints. No rash or redness. Chief Complaint: Edema Informant: patient and spouse/S.O. Occured/Mechanism Mechanism/Context: No injury and No blunt trauma Onset/Context/Timing Onset: Weeks Context: Gradual Onset Timing: Continuous Quality of Pain: Dull Current Severity: Mild Maximum Severity: Mild Associated Symptoms Associated Symptoms: Negative for Parasthesia, Weakness or Loss of Funtion Narrative Narrative: 59-year-old male atraumatic left calf discomfort and swelling for 1 to 2 weeks. No other complaints. No prior history of DVT or PE. Prior similar symptoms: No Recent Illness/Hospitalization: No [facility] Medical History (Updated 02/18/25 @ 18:[address] 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 Anxiety Cervical disc herniation Benign colonic polyp Home Medications ?Medication ?Instructions ?Recorded ?Last Taken ?Type cetirizine 10 mg tablet (Zyrtec) 10 mg PO DAILY allergies 11/26/19 Unknown History glucosamine HCl 500 mg tablet 500 mg PO DAILY Knee pain 11/26/19 12/14/19 History hydrochlorothiazide 12.5 mg tablet 12.5 mg PO DAILY BP 11/26/19 12/14/19 History lisinopril 20 mg tablet 20 mg PO DAILY BP 11/26/19 04/30/20 History multivitamin 1 cap PO DAILY supplement 11/26/19 12/14/19 History venlafaxine 75 mg capsule,extended 75 mg PO DAILY anxiety 11/26/19 04/30/20 History release 24 hr (Effexor XR) Allergy/AdvReac Type Severity Reaction Status Date / Time pregabalin (From Lyrica) Allergy Mild mood swings Verified 02/18/25 16:36 Family History Father Hypertension Brother Hypertension Grandfather Cancer skin cancer CVA (cerebral vascular accident) Grandmother CVA (cerebral vascular accident) Surgical History S/P excision of lipoma History of appendectomy (01/2020) History of right inguinal hernia repair History of lobectomy of thyroid History of arthroscopy of both knees Social History Smoking Status: Former smoker alcohol intake: current alcohol intake frequency: a few times a week substance use type: does not use ROS ROS ED ROS Narrative Atraumatic left calf discomfort and swelling. Denies any recent illness. Constitutional Constitutional ED: Denies chills or fever(s) Eyes Eyes: Denies blurry vision ENT ENT ED: Denies ear pain Cardiovascular Cardiovascular: Denies chest pain Respiratory/Chest Respiratory/Chest: Denies cough Gastrointestinal Gastrointestinal: Denies abdominal pain Genitourinary Genitourinary ED: Denies dysuria Musculoskeletal Musculoskeletal: Denies arthralgias Integumentary Denies abscess Neurologic Neurologic: Denies headache(s) Psychiatric Psychiatric: Denies anxiety Endocrine Endocrinology: Denies polydipsia Hematologic/Lymphatic Hematologic/Lymphatic: Denies easy bleeding, easy bruising or lymphadenopathy Allergic/Immunologic Allergic/Immunologic ED: Denies mouth swelling, tongue swelling or urticaria EXAM Physical Exam Narrative Exam Narrative: Noticed well-appearing 59-year-old male. Vital signs stable afebrile. Does not appear to be septic toxic no acute distress. Patient pulse ox 100% on room air no signs hypoxia. Accompanied by his . H EENT exam pupils round react light. Moist extremities. Neck nontender no JVD. No lymphadenopathy. Lungs clear to auscultation bilaterally. Heart regular rhythm rate about 70 no murmur. Chest wall ribs nontender. Abdomen soft nontender. Moving all 4 extremities. Neurovascular intact. Normal asset protection agent strength. Normal dorsi plantarflex. Left calf appears to be mildly swollen. He has mild calf tenderness to palpation. There is no inguinal lymphadenopathy. He has full flexion extension of his left hip knee ankle and foot. The joints themselves are not swollen. They are not red they are not hot. There is no signs of septic joint. There is no signs of cellulitis. He has a normal DP pulse. Normal strength and sensation in his foot. Left calf minimally swollen. No cord. Knee itself normal range of motion flexion extension. No pain to the knee. No effusion. No signs of septic joint. Neurologically he is awake alert. Answer question following commands. Good strength and sensation in all 4 extremities. Const Vital Signs: 02/18/25 16:37 02/18/25 17:14 Temperature 97.6 F L Temperature Source Temporal Pulse Rate 68 Respiratory Rate 20 H Respiratory Effort Normal Non-Labored Blood Pressure 177/98 H Blood Pressure Mean 124 Pulse Ox 100 Oxygen Delivery Method Room Air MDM MDM MDM Narrative Medical decision making narrative: 59-year-old male atraumatic left calf discomfort mild swelling. Concern for possible DVT. No prior history or risk factors. Ultrasound be obtained. If no signs of infection is not red or warm. There is no cellulitis. There is no septic joint. There is no inguinal lymphadenopathy. There is no streaking. He has full flexion extension of his left hip, left knee and left ankle. Normal dorsi plantarflexion of the foot. Normal DP pulse. I do not think he needs lab work. Repeat exam at around 6:40 PM. Patient doing well. No change in exam. Mild proximal calf tenderness. The knee there is no redness or swelling or effusion. Is full flexion extension. Normal strength in his foot. There is no rash, no crepitance. No redness. No cellulitis. No lymphadenopathy in the groin. Full flexion-extension of both the left hip, left knee and left ankle. Normal in appearance other than mild swelling of the proximal calf. This will be treated with anti-inflammatories ice and rest if not improving follow-up with his physician if worse or he develops a rash or fever to return immediately. He and his are comfortable with the plan. We discussed his negative noninvasive study. History & Record Review Discussion w/independent historian: Patient and Family Radiography Diagnostic Testing: Clinical Impression(s) from Imaging Studies Venous Duplex 02/18/25 17:35 IMPRESSION: No acute occlusive deep vein thrombosis. Reading Location: [facility] Discharge Plan Triage Chief Complaint: Edema ED Provider: Santino Holley Dx/Rx/DC Orders Clinical Impression: Calf pain Instructions: ED Muscle Strain, Extremity Prescriptions: No Action venlafaxine [Effexor XR] 75 mg capsule,extended release 24hr 75 mg PO DAILY hydrochlorothiazide 12.5 mg tablet 12.5 mg PO DAILY lisinopril 20 mg tablet 20 mg PO DAILY multivitamin Capsule 1 cap PO DAILY cetirizine [Zyrtec] 10 mg tablet 10 mg PO DAILY glucosamine HCl 500 mg tablet 500 mg PO DAILY Rx Instructions: administer with meals Primary Care Provider: Emory Brewer Referrals: Emory Brewer MD [Primary Care Provider, Family Practice] - 3-5 Days if not improving Activity Restrictions/Additional Instructions: Ice and elevate the calf and knee. 30 minutes at a time 3 times a day for the next several days. Motrin 400 mg 3 times a day or 600 mg twice a day. To decrease pain and inflammation. Tylenol is also okay for the pain while doing from the inflammation. This should progressively get better if not follow-up with your doctor if you develop a fever or rash or feel a lot worse return to the emergency department. The ultrasound today showed no blood clot. Print Language: Occitan Disposition Disposition: Home, Self Care
--- NOTE | 2025-02-18 17:35 | US_ITS ---
PROCEDURE: VENOUS DUPLEX IMAG/LIMITED/UNI 02/18/2025 REASON FOR EXAM: M 59 y/o TECHNIQUE: Procedure Code: USVDUL Modality: US Procedure: VENOUS DUPLEX IMAG/LIMITED/UNI FINDINGS: There is no intraluminal echogenicity to suggest the presence of a deep venous thrombosis. Appropriate respiratory variation, augmentation and venous compression is noted. US/Venous Duplex Imag/Limited/Uni IMPRESSION: No acute occlusive deep vein thrombosis. Reading Location: [id number]
[2025-02-18 18:43] VITALS: BP 160/95; PULSE 61; RESP 16; TEMP 36.4; O2SAT 100
== END 2025-02-18 18:47 | disposition home or self-care (01) ==
LOC: ED 18:46
PROVIDERS: Emergency Provider Emergency Medicine; PCP Family Medicine; Visit Provider Emergency Medicine
DX: M79.662 Pain in left lower leg (principal); I10 Essential (primary) hypertension; E78.5 Hyperlipidemia, unspecified; Z87.891 Personal history of nicotine dependence; R60.9 Edema, unspecified; Z85.850 Personal history of malignant neoplasm of thyroid; Z79.899 Other long term (current) drug therapy; Z90.49 Acquired absence of other specified parts of digestive tract; M25.562 Pain in left knee
CPT/HCPCS: 93971; 99282